=== PATIENT | female | born 1985 | race Caucasian/White ===

== ENCOUNTER 2024-11-19 06:59 | Emergency (ER) | payer SELFPAY ==
[~2024-11-19] VITALS: Ht 160 cm; Wt 101.2 kg
[2024-11-19] MEDS ORDERED: Albuterol Sulf/Ipratropium 3 ML VIAL NEB ONE (07:30)
[2024-11-19] MEDS ORDERED: MEDROL DOSEPAK4 MG PO (08:22)
[2024-11-19] MEDS ORDERED: AVPAK AZITHROM250 MG PO (08:22)
== END 2024-11-19 08:26 | disposition home or self-care (01) ==
LOC: ED 06:59
DX: J44.89 Other specified chronic obstructive pulmonary disease (principal); F17.290 Nicotine dependence, other tobacco product, uncomplicated; Z20.822 Contact with and (suspected) exposure to COVID-19; Z91.040 Latex allergy status